=== PATIENT | female | born 1980 | race Caucasian/White ===

== ENCOUNTER 2018-09-12 05:10 | Inpatient (IN) | payer OTHER ==
[~2018-09-12] VITALS: Ht 157.5 cm; Wt 83.1 kg
[2018-09-12] MEDS ORDERED: RINGERS SOLUTION,LACTATED 1,000 ML IV PRN (06:07)
[2018-09-12] MEDS ORDERED: OXYTOCIN 30 UNITS/LACT RINGERS 500 ML IV ONE (06:07)
[2018-09-12 06:13] VITALS: BP 131/90
[2018-09-12 06:15] VITALS: BP 131/90
[2018-09-12] MEDS ORDERED: METHYLERGONOVINE MALEATE 0.2 MG/ML VIAL IM PRN (06:15)
[2018-09-12] MEDS ORDERED: CITRIC ACID/SODIUM CITRATE 30 ML SOLUTION UDCUP PO PRN (06:15)
[2018-09-12] MEDS ORDERED: LIDOCAINE/PF 1% 30 ML VIAL INJ PRN (06:15)
[2018-09-12] MEDS ORDERED: FentaNYL CITRATE-PF 100 MCG/2 ML VIAL IVP PRN (06:15)
[2018-09-12] MEDS ORDERED: METOCLOPRAMIDE HCL 5 MG/ML 2 ML VIAL IVP PRN (06:15)
[2018-09-12] MEDS: RINGERS SOLUTION,LACTATED 1,000 ML IV SCH ×2 (06:22→15:56)
[2018-09-12] MEDS ORDERED: MISOPROSTOL 25 MCG TABLET PO SCH ×2 (06:45→12:00)
[2018-09-12 07:13] LABS: BASOPHILS % (AUTO) 0.4 % (0.0-2.0); EOSINOPHILS % (AUTO) 0.5 % (1.0-6.0); HEMOGLOBIN 12.7 g/dL (12.0-16.0); LYMPHOCYTES # (AUTO) 1.1 K/uL (1.0-4.8); LYMPHOCYTES % (AUTO) 14.6 % (22.0-44.0); MEAN CORPUSCULAR HEMOGLOBIN 32.6 pg (26.0-34.0); MEAN CORPUSCULAR HGB CONC 34.4 G/dL (31.0-37.0); MEAN CORPUSCULAR VOLUME 95 fL (80-100); MONOCYTES # (AUTO) 0.4 K/uL (0.1-1.0); MONOCYTES % (AUTO) 5.6 % (2.0-9.0); NEUTROPHILS # (AUTO) 6.2 K/uL (1.8-7.7); NEUTROPHILS % (AUTO) 78.9 % (40.0-70.0); PLATELET COUNT (AUTO)-OB 223 K/uL (150-450); RED CELL DISTRIBUTION WIDTH 14.8 % (11.5-14.5)
[2018-09-12] MEDS ORDERED: OXYGEN THERAPY IH SCH (08:00)
[2018-09-12 10:13] LABS: GLUCOMETER DEV NAME(LOC) 4S 8; GLUCOSE,POINT OF CARE 101 MG/DL (70-110)
[2018-09-12] MEDS ORDERED: LIDOCAINE/PF 2% 5 ML VIAL ONE (14:12)
[2018-09-12] MEDS ORDERED: ROPIVACAINE HCL/PF 0.2% 100 ML ED ONE (14:13)
[2018-09-12] MEDS ORDERED: ROPIVACAINE HCL/PF 0.2% 100 ML ED PRN (14:45)
[2018-09-12] MEDS ORDERED: NALBUPHINE HCL 10 MG/ML VIAL IVP PRN (14:45)
[2018-09-12] MEDS ORDERED: ONDANSETRON HCL 4 MG/2 ML VIAL IVP PRN (14:45)
[2018-09-12] MEDS ORDERED: DiphenhydrAMINE HCL 50 MG/ML VIAL IVP PRN (14:45)
[2018-09-12] MEDS ORDERED: OXYTOCIN 30 UNITS/LACT RINGERS 500 ML IV PRN (15:17)
[2018-09-12] MEDS ORDERED: RINGERS SOLUTION,LACTATED 1,000 ML IV ONE (19:52)
[2018-09-12] MEDS ORDERED: MEASLES/MUMPS/RUBELLA VACCINE, LIVE 0.5 ML/VIAL SQ ONE (20:00)
[2018-09-12] MEDS ORDERED: GLYCERIN/WITCH HAZEL LEAF 40 PADS JAR TP PRN (20:00)
[2018-09-12] MEDS ORDERED: OxyCODONE HCL/ACETAMINOPHEN 5-325 MG TABLET PO PRN ×2 (20:00)
[2018-09-12] MEDS ORDERED: LANOLIN 7 GM OINTMENT TP PRN (20:00)
[2018-09-12] MEDS ORDERED: BENZOCAINE 20%/MENTHOL 56 GM SPRAY CANISTER TP PRN (20:00)
[2018-09-12] MEDS ORDERED: IBUPROFEN 600 MG TABLET PO PRN (20:00)
[2018-09-12] MEDS ORDERED: PNEUMOCOCCAL VACCINE POLYVALENT 0.5 ML VIAL [PPSV23] IM ONE (20:45)
[2018-09-12] MEDS ORDERED: MAGNESIUM HYDROXIDE SUSPENSION 30 ML UDCUP PO SCH (21:00)
[2018-09-13] MEDS ORDERED: IBUP-2071 PO (11:44)
[2018-09-13] MEDS ORDERED: DSS100 PO (11:46)
== END 2018-09-13 20:40 | disposition home or self-care (01) | DRG 807 ==
LOC: 4S 05:10 → OBSVTOIN 06:11 → 4S 14:37
PROVIDERS: ADMIT Obstetrics & Gynecology; ATTEND Obstetrics & Gynecology
PROC: 0KQM0ZZ Repair Perineum Muscle, Open Approach (ICD-10-PCS; principal; 2018-09-12)
PROC: 10E0XZZ Delivery of Products of Conception, External Approach (ICD-10-PCS; 2018-09-12)
PROC: 3E0R3BZ Introduction of Anesthetic Agent into Spinal Canal, Percutaneous Approach (ICD-10-PCS; 2018-09-12)
PROC: 00HU33Z Insertion of Infusion Device into Spinal Canal, Percutaneous Approach (ICD-10-PCS; 2018-09-12)
DX: O70.1 Second degree perineal laceration during delivery (principal); Z37.0 Single live birth; Z3A.38 38 weeks gestation of pregnancy
CPT/HCPCS: 86850; 86900; 86901; 90686; J2590; J2795; J3490; J7120